=== PATIENT | female | born 1945 | race Caucasian/White ===

== ENCOUNTER 2019-01-28 01:18 | Observation (INO) | payer MEDICARE, OTHER ==
[~2019-01-28] VITALS: Ht 154.9 cm; Wt 67.6 kg
[2019-01-28] VITALS (8 sets, daily range): BP systolic 105–166; BP diastolic 50–81
[2019-01-28] MEDS ORDERED: SYNTHROID75 MCG PO (01:26)
[2019-01-28 01:49] LABS: ABSOLUTE BASOPHILS 0.1 thou/uL (0.0-0.2); ABSOLUTE LYMPHOCYTES 1.7 thou/uL (0.8-5.3); ABSOLUTE MONOCYTES 0.5 thou/uL (0.0-1.2); ABSOLUTE NEUTROPHILS 9.5 thou/uL (1.6-8.1); BASOPHILS 0.5 %; EOSINOPHILS 0.2 %; HEMATOCRIT 44.9 % (37.0-47.0); HEMOGLOBIN 15.1 gm/dL (12.0-15.0); LYMPHOCYTES 14.3 %; MCH 29.1 pg (26.0-34.0); MCHC 33.5 g/dL (28.0-37.0); MCV 86.7 fL (80.0-100.0); MONOCYTES 4.2 %; MPV 7.3 fl. (7.2-11.1); NUCLEATED RBCS 0 /100WBC; PLATELET COUNT* 313 thou/uL (150-400); POLYS 80.8 %; RBC 5.18 mil/uL (4.20-5.00); RDW-CV 14.3 % (10.5-14.5); WBC 11.8 thou/uL (4.0-11.0)
[2019-01-28 01:56] LABS: ANION GAP 10 mmol/L (7-16); BUN 19 mg/dL (7-18); CALCIUM 9.2 mg/dL (8.5-10.1); CHLORIDE 102 mmol/L (98-107); CO2 29 mmol/L (21-32); CREATININE 1.2 mg/dL (0.6-1.3); GLUCOSE 135 mg/dL (70-99); POTASSIUM 4.2 mmol/L (3.5-5.1); SODIUM 141 mmol/L (136-145)
[2019-01-28 01:58] LABS: URINE BILIRUBIN NEGATIVE (Negative); URINE BLOOD TRACE (Negative); URINE CLARITY CLEAR; URINE COLOR YELLOW; URINE GLUCOSE-RANDOM NEGATIVE (Negative); URINE KETONES TRACE (Negative); URINE LEUKOCYTES-REFLEX 1+ (Negative); URINE NITRITE-REFLEX NEGATIVE (Negative); URINE PROTEIN NEGATIVE (Negative); URINE UROBILINOGEN 0.2 E.U./dl (0.2-1.0)
[2019-01-28 02:03] LABS: BACTERIA-REFLEX 1-9 Few /HPF (None Seen); CASTS None Seen /LPF (None Seen); CRYSTALS None Seen /LPF (None Seen); SQUAMOUS 0-3 Few /LPF (0-3); URINE RBC 0-2 Rare /HPF (0-2); URINE WBC-REFLEX 6-15 Few /HPF (0-5)
[2019-01-28 02:06] LABS: ALBUMIN 3.8 g/dL (3.4-5.0); ALKALINE PHOSPHATASE 98 U/L (46-116); LIPASE 668 U/L (73-393); SGOT 20 U/L (15-37); SGPT 25 U/L (30-65); TOTAL BILIRUBIN 0.4 mg/dL (<0.1-1.0); TOTAL PROTEIN 7.9 g/dL (6.4-8.2); TROPONIN-I LEVEL <0.06 ng/mL (<0.06)
--- NOTE | 2019-01-28 11:16 | EKG ---
[place] [address] ELECTROCARDIOGRAM REPORT Name: JORDAN RODRIGUEZ Room: [place] [address] ADM IN .R.#: [id number] Admission: 01/28/19 Attend Phys: Jose Antonio Morales Discharge: Date of : 49 Report #: [id number] THIS REPORT FOR: //name// [facility] ED Test Date: 2019-01-28 Test Time: 01:40:15 Pat Name: JORDAN RODRIGUEZ Department: Room: [facility] Gender: F Wall[employer] Printer: : [id number] Requested By: Ancelmo Merchant Order Number: [id number] MD: Kalia Zelaya Measurements Intervals [place] Rate: 67 P: -13 SD: 158 QRS: -24 QRSD: 99 T: 26 QT: 404 QTc: 427 Interpretive Statements Sinus rhythm Borderline left axis deviation Low voltage, precordial leads RSR' in V1 or V2, probably normal variant Baseline wander in lead(s) III No previous ECG available for comparison Electronically Signed On 01-28-2019 11:16:46 CDT by Kalia Zelaya [email or web address] <ELECTRONICALLY SIGNED> By: Kalia Zelaya MD, [facility] 01/28/19 1116 [id number] Kalia Zelaya MD, [facility] /EPI
--- NOTE | 2019-01-28 13:46 | NUR ---
PT SWITCHED TO HOSPITAL BED AT THIS TIME. PT IS BOARDING.
--- NOTE | 2019-01-28 18:47 | NUR ---
PATIENT ARRIVED FROM ER THIS EVENING. PATIENT SETTLED TO ROOM. HISTORY, ASSESSMENT AND VITALS COMPLETED AND DOCUMENTED. PATIENT DENIES ANY PAIN. PATIEN TIS TOLERATING A REGULAR DIET. PATIEN TIS UP AD BRITTANI IN ROOM. PATIENT DENIES ANY NEEDS AT THIS TIME. CALL LIGHT WITHIN REACH. WILL CONTINUE TO MONITOR.
[2019-01-29 05:10] LABS: ABSOLUTE BASOPHILS 0.1 thou/uL (0.0-0.2); ABSOLUTE EOSINOPHILS 0.2 thou/uL (0.0-0.7); ABSOLUTE MONOCYTES 0.7 thou/uL (0.0-1.2); ABSOLUTE NEUTROPHILS 4.4 thou/uL (1.6-8.1); BASOPHILS 0.8 %; EOSINOPHILS 3.2 %; HEMATOCRIT 38.1 % (37.0-47.0); MCH 29.7 pg (26.0-34.0); MCHC 33.9 g/dL (28.0-37.0); MCV 87.6 fL (80.0-100.0); MONOCYTES 9.1 %; MPV 7.9 fl. (7.2-11.1); NUCLEATED RBCS 0 /100WBC; POLYS 59.9 %; RBC 4.35 mil/uL (4.20-5.00); RDW-CV 14.2 % (10.5-14.5); WBC 7.3 thou/uL (4.0-11.0)
[2019-01-29 05:17] LABS: HEMOGLOBIN 12.9 gm/dL (12.0-15.0); PLATELET COUNT* 222 thou/uL (150-400)
--- NOTE | 2019-01-29 05:30 | NUR ---
PT SLEPT MOST OF SHIFT. ASSESSMENT DOCUMENTED. MEDS GIVEN PER E-MAR. IV PATENT, FLUIDS INFUSING. NO REPORTS OF PAIN OR NAUSEA THIS SHIFT. PT REMAINED MPO AFTER 0000. WILL CONTINUE WITH PLAN OF CARE.
[2019-01-29 06:32] LABS: ALBUMIN 2.7 g/dL (3.4-5.0); CALCIUM 8.4 mg/dL (8.5-10.1); CREATININE 0.8 mg/dL (0.6-1.3); TOTAL BILIRUBIN 0.5 mg/dL (<0.1-1.0); TOTAL PROTEIN 5.9 g/dL (6.4-8.2)
[2019-01-29 08:00] VITALS: BP 113/61
[2019-01-29] MEDS ORDERED: AMOX TR-K CLV1 EAC3 PO (09:17)
[2019-01-29] MEDS ORDERED: CEFUROXIME500 MG PO (09:23)
[2019-01-29] MEDS ORDERED: ZOFRAN ODT4 MG PO (09:45)
[2019-01-29 10:13] VITALS: BP 113/61
--- NOTE | 2019-01-29 11:25 | NUR ---
DISCHARGE NOTE - IV REMOVED. ALL BELONGINGS SENT WITH PT. REVIEWED DISCHARGE INSTRUCTIONS WITH PT/SPOUSE. NO QUESTIONS.
== END 2019-01-29 11:25 | disposition home or self-care (01) ==
LOC: M.ERS 01:18 → M.ORTHSURG 03:23 → M.TBA-ER 03:23 → M.ORTHSURG 16:10
PROVIDERS: Emergency Medicine Emergency Medical Services; Surgery; ADMIT Internal Medicine
DX: K81.0 Acute cholecystitis (principal); D72.829 Elevated white blood cell count, unspecified; E86.9 Volume depletion, unspecified; R10.11 Right upper quadrant pain; E03.9 Hypothyroidism, unspecified; Z98.890 Other specified postprocedural states; Z90.710 Acquired absence of both cervix and uterus